=== PATIENT | female | born 1990 | race Caucasian/White ===

== ENCOUNTER 2018-02-25 22:08 | Emergency (ER) | payer MEDICAID ==
[~2018-02-25] VITALS: Ht 149.9 cm; Wt 131.8 kg
[2018-02-25 22:15] VITALS: Ht 149.9 cm; Wt 131.8 kg
[2018-02-25] MEDS ORDERED: ULTRAM50 MG PO (22:16)
[2018-02-25] MEDS ORDERED: HYDROXYZINE HCL10 MG PO (22:17)
[2018-02-25] MEDS ORDERED: ZESTRIL10 MG PO (22:17)
[2018-02-25] MEDS ORDERED: EFFEXOR100 MG PO (22:30)
[2018-02-25] MEDS ORDERED: ROBAXIN500 MG PO (22:30)
[2018-02-25] MEDS ORDERED: ZANTAC150 MG PO (22:30)
[2018-02-25] MEDS ORDERED: CYCLOBENZAPRINE10 MG PO (22:30)
[2018-02-25 23:51] LABS: BASOPHILS 0.2 % (0-2); EOSINOPHILS 1.9 % (0-7); HEMATOCRIT 43.1 % (36.0-48.0); HEMOGLOBIN 14.2 g/dL (12-16); IMMATURE GRANULOCYTES 0.3 % (0-5); LYMPHOCYTES 23.9 % (15-50); MCH 28.5 pg (26.0-34.0); MCHC 32.9 g/dL (31.0-37.0); MCV 86.5 fL (80.0-100.0); MEAN PLATELET VOLUME 9.1 fL (7.4-10.4); MONOCYTES 5.7 % (2-11); PLATELET COUNT 243 10x3/uL (130-400); RBC 4.98 10x6/uL (4.00-5.40); RDW 12.6 % (11.5-14.5); WBC 12.4 10x3/uL (4.8-10.8)
[2018-02-25 23:53] LABS: HCG SERUM NEGATIVE (NEGATIVE)
[2018-02-25 23:59] LABS: ALBUMIN 3.5 g/dL (3.4-5.0); ALKALINE PHOSPHATASE 62 U/L (46-116); ALT (SGPT) 25 U/L (10-68); CALC OSMOLALITY 275 mosm/kg (275-300); CHLORIDE - SERUM 101 mmol/L (98-107); CREATININE - SERUM 0.4 mg/dL (0.6-1.3); GLUCOSE 100 mg/dL (74-106); POTASSIUM - SERUM 3.8 mmol/L (3.5-5.1); PROTEIN - SERUM 7.2 g/dL (6.4-8.2); SODIUM 139 mmol/L (136-145); UREA NITROGEN 8 mg/dL (7-18); eGFR NON AFRICAN AMERICAN > 90 mL/min (90-120)
[2018-02-26 00:04] LABS: THYROID STIMULATING HORMONE 0.89 uIU/mL (0.36-3.74)
[2018-02-26 00:40] VITALS: BP 108/63
== END 2018-02-26 00:43 | disposition home or self-care (01) ==
LOC: D.ER 22:08
PROVIDERS: Family Medicine
DX: R55 Syncope and collapse (principal); I10 Essential (primary) hypertension; F17.200 Nicotine dependence, unspecified, uncomplicated